=== PATIENT | female | born 1985 | race Asian ===

== ENCOUNTER 2020-01-27 15:45 | Inpatient (IN) | payer OTHER, SELFPAY ==
[~2020-01-27] VITALS: Ht 160 cm; Wt 64.4 kg
[2020-01-27] MEDS ORDERED: PNV91TAB8 PO (16:08)
[2020-01-27] MEDS ORDERED: MISOPROSTOL 25 MCG TAB VG SCH (16:35)
[2020-01-27] MEDS ORDERED: OXYTOCIN 20 UNITS in LACTATED RINGERS 1,000 ML IV SCH (16:35)
[2020-01-27 17:16] LABS: BASOPHILS % (AUTO) 0.2 % (0.0-2.0); EOSINOPHILS # (AUTO) 0.1 K/uL (0-0.4); EOSINOPHILS % (AUTO) 0.8 % (0.0-4.0); HEMATOCRIT 38.2 % (36-48); LYMPHOCYTES # (AUTO) 1.1 K/uL (2.5-16.5); LYMPHOCYTES % (AUTO) 16.6 % (20.5-51.1); MEAN CORPUSCULAR HEMOGLOBIN 30 pg (27-31); MEAN CORPUSCULAR HGB CONC 34 g/dL (33-37); MEAN CORPUSCULAR VOLUME 87.7 fL (80-94); MONOCYTES # (AUTO) 0.5 K/uL (0.8-1.0); NEUTROPHILS # (AUTO) 4.8 K/uL (1.8-7.7); NEUTROPHILS % (AUTO) 75.4 % (42.2-75.2); PLATELET COUNT (AUTO) 239 K/uL (140-450); RED BLOOD CELL COUNT(AUTO) 4.36 MIL/uL (4.20-5.40); RED CELL DISTRIBUTION WIDTH 15.8 % (11.6-13.7); WHITE BLOOD COUNT (AUTO) 6.4 K/uL (4.8-10.8)
[2020-01-27 17:16] LABS: APPEARANCE,URINE HAZY (CLEAR); BILIRUBIN,URINE NEGATIVE (NEGATIVE); BLOOD, URINE TRACE-I (NEGATIVE); COLOR,URINE YELLOW (YELLOW); LEUKOCYTE ESTERASE ,URINE 1+ (NEGATIVE); NITRITE, URINE NEGATIVE (NEGATIVE); UGLUCOSE NEGATIVE (NEGATIVE)
[2020-01-27] MEDS: LACTATED RINGERS 1,000 ML IV SCH (17:37)
[2020-01-27] MEDS ORDERED: AMPICILLIN 2,000 MG VIAL ONE (17:42)
[2020-01-27 17:43] LABS: ALBUMIN 2.9 g/dL (3.4-5.0); CARBON DIOXIDE 24.8 mmol/L (21-32); CREATININE 0.7 mg/dL (0.6-1.3); POTASSIUM 3.8 mmol/L (3.5-5.1); TOTAL BILIRUBIN 0.3 mg/dL (0.0-1.0)
[2020-01-27] MEDS ORDERED: AMPICILLIN 2,000 MG in NACL 0.9% 100 ML IV SCH (17:45)
[2020-01-27 18:00] VITALS: BP 113/67
[2020-01-27 19:06] LABS: APPEARANCE,URINE CLEAR (CLEAR); BILIRUBIN,URINE NEGATIVE (NEGATIVE); BLOOD, URINE 2+ (NEGATIVE); COLOR,URINE YELLOW (YELLOW); LEUKOCYTE ESTERASE ,URINE NEGATIVE (NEGATIVE); NITRITE, URINE NEGATIVE (NEGATIVE); PH,URINE 6.5 (5.0-9.0); UGLUCOSE NEGATIVE (NEGATIVE)
[2020-01-27 19:15] LABS: RBC,URINE 11-20 (MOD) /HPF (0-5)
[2020-01-27 19:16] LABS: WBC,URINE 0-5 /HPF (0-5)
[2020-01-27] MEDS ORDERED: AMPICILLIN 1,000 MG VIAL ONE (21:33)
[2020-01-27] MEDS: AMPICILLIN 1,000 MG in NACL 0.9% 50 ML IV SCH (22:01)
[2020-01-28] MEDS: LACTATED RINGERS 1,000 ML IV SCH ×2 (00:09→02:33)
[2020-01-28] MEDS ORDERED: fentaNYL citrate 0.05 MG/ML VIAL ONE (00:32)
[2020-01-28] MEDS ORDERED: ROPIVACAINE 0.2%/NS PREMIX 200 ML EPI ONE (00:32)
[2020-01-28] MEDS ORDERED: AMPICILLIN 1,000 MG VIAL ONE ×3 (02:00→10:00)
[2020-01-28] MEDS: AMPICILLIN 1,000 MG in NACL 0.9% 50 ML IV SCH ×3 (02:05→10:07)
[2020-01-28] MEDS ORDERED: OXYTOCIN 20 UNITS/LR PREMIX 1,000 ML IV ONE (06:16)
--- NOTE | 2020-01-28 08:33 | NUR ---
PATIENT HAS BEEN SCREENED AND CATEGORIZED LOW NUTRITION RISK. PATIENT WILL BE SEEN WITHIN 7 DAYS OF ADMISSION. 02/03/[address]
[2020-01-28] MEDS ORDERED: OXYTOCIN 10 UNITS/ML VIAL ONE (09:13)
[2020-01-28] MEDS ORDERED: LIDOCAINE 1% 500 MG/50 ML VIAL ONE (09:14)
[2020-01-28] MEDS ORDERED: OXYTOCIN 10 UNITS/ML VIAL IM SCH ×2 (11:50→12:00)
[2020-01-28] MEDS ORDERED: MEASLES, MUMPS, AND RUBELLA 1 VIAL SQVAC PRN (13:10)
[2020-01-28] MEDS ORDERED: ACETAMINOPHEN 325 MG TAB PO PRN (13:10)
[2020-01-28] MEDS ORDERED: DOCUSATE SODIUM 100 MG GELCAP PO PRN (13:10)
[2020-01-28] MEDS ORDERED: IBUPROFEN 600 MG TAB PO PRN (13:10)
[2020-01-28] MEDS ORDERED: bisacodyL 5 MG TABEC PO PRN (13:10)
[2020-01-28] MEDS ORDERED: OXYTOCIN 20 UNITS in LACTATED RINGERS 1,000 ML IV SCH (13:10)
[2020-01-28] MEDS ORDERED: BENZOCAINE/MENTHOL 20%-0.5% 60 GM CAN TP PRN (13:10)
[2020-01-29 08:27] LABS: BASOPHILS % (AUTO) 0.2 % (0.0-2.0); EOSINOPHILS # (AUTO) 0.1 K/uL (0-0.4); EOSINOPHILS % (AUTO) 1.2 % (0.0-4.0); HEMATOCRIT 37.9 % (36-48); HEMOGLOBIN 12.5 g/dL (12.0-16.0); LYMPHOCYTES # (AUTO) 1.7 K/uL (2.5-16.5); MEAN CORPUSCULAR HEMOGLOBIN 29 pg (27-31); MEAN CORPUSCULAR HGB CONC 33 g/dL (33-37); MONOCYTES # (AUTO) 0.7 K/uL (0.8-1.0); MONOCYTES % (AUTO) 6.4 % (1.7-9.3); NEUTROPHILS # (AUTO) 8.6 K/uL (1.8-7.7); NEUTROPHILS % (AUTO) 77.2 % (42.2-75.2); PLATELET COUNT (AUTO) 224 K/uL (140-450); RED BLOOD CELL COUNT(AUTO) 4.26 MIL/uL (4.20-5.40); WHITE BLOOD COUNT (AUTO) 11.2 K/uL (4.8-10.8)
[2020-01-30 14:04] VITALS: BP 116/75
[2020-01-30] MEDS ORDERED: ACET-9882 PO ×2 (14:10→14:12)
[2020-01-30] MEDS ORDERED: ACET-2619 PO ×3 (14:16→14:18)
== END 2020-01-30 15:30 | disposition home or self-care (01) | DRG 560 ==
LOC: MFCC 15:45
PROVIDERS: ADMIT Obstetrics & Gynecology; ATTEND Obstetrics & Gynecology
PROC: 10E0XZZ Delivery of Products of Conception, External Approach (ICD-10-PCS; principal; 2020-01-28)
PROC: 3E0P7VZ Introduction of Hormone into Female Reproductive, Via Natural or Artificial Opening (ICD-10-PCS; 2020-01-28)
PROC: 0HQ9XZZ Repair Perineum Skin, External Approach (ICD-10-PCS; 2020-01-28)
PROC: 00HU33Z Insertion of Infusion Device into Spinal Canal, Percutaneous Approach (ICD-10-PCS; 2020-01-28)
PROC: 3E0R3BZ Introduction of Anesthetic Agent into Spinal Canal, Percutaneous Approach (ICD-10-PCS; 2020-01-28)
DX: O98.82 Other maternal infectious and parasitic diseases complicating childbirth (principal); B95.1 Streptococcus, group B, as the cause of diseases classified elsewhere; O99.824 Streptococcus B carrier state complicating childbirth; O69.1XX0 Labor and delivery complicated by cord around neck, with compression, not applicable or unspecified; Z37.0 Single live birth; O70.0 First degree perineal laceration during delivery; Z3A.37 37 weeks gestation of pregnancy; Z20.828 Contact with and (suspected) exposure to other viral communicable diseases
CPT/HCPCS: 36415; 51702; 59409; 76815; 80053; 81001; 85025; 86592; 86886; 86900; 86901; 87086; J0290; J2001; J2590; J2795; J3010; J7120